=== PATIENT | female | born 1990 | race Caucasian/White ===

== ENCOUNTER 2019-08-06 19:24 | Inpatient (IN) | payer BC ==
[2019-08-06] VITALS (14 sets, daily range): BP systolic 102–137; BP diastolic 57–88; PULSE 83–107; TEMP 98.1–98.9
[~2019-08-06] VITALS: Ht 170.2 cm; Wt 89.1 kg
--- NOTE | 2019-08-06 19:00 | NUR ---
G2L1. 40-1. Ambulatory to [facility] with significant other. Clean gown on. EFM and TOCO explained and applied. Pt states she thinks she has been having contractions every 3-4 minutes apart during the drive to hospital. Pt called earlier and was told to come get evaluated here. Pt states she lost her mucous plug this morning and since then she has had some leaking but states she is unsure if it was her water that broke. SVE /-2. Moist exam noted, amniotest positive but bloody show was also noted on exam glove, bag of water noted on exam. Pt reports good movement. VSS. 1907: notified on pts status. See physican notification. 1914: Plan of care explained to pt and significant other. IV started and labs obtained via IV site. LR bolus and Mitzy infusing without difficulties. Call light within reach. 1929: Report given to Estephania TOVAR.
[~2019-08-06 19:24] MED LIST: BCP TD; FLEXERIL10 MG PO; LORTAB 5/500 501 TAB PO; MOTRIN 600600 MG/TAB PO; PERCOCET 325 MG1 TA2 PO; PRENATAL1 TA1; PROZAC 20MG20 MG PO; VISTARIL 2525 MG/CAP PO
[2019-08-06 21:12] LABS: HEMOGLOBIN 10.7 g/dl (12.5-16.0); MEAN CELL VOLUME 83 fl (80.0-100.0); MEAN CORPUSCULAR HEMOGLOBIN 27 pg (27.0-31.0); MEAN CORPUSCULAR HGB CONC 32 g/dl (33.0-37.0); MEAN PLATELET VOLUME 11.2 fl (7.4-10.4); PLATELET COUNT 177 K/mm3 (130-400); RED BLOOD COUNT 3.99 M/mm3 (4.10-5.30); REDCELL DISTRIBUTION WIDTH-CV 13.3 % (11.5-14.5)
[2019-08-06 22:35] LABS: EOSINOPHIL 3 % (0-4); LYMPHOCYTE 11 % (20.0-51.0); MICROCYTOSIS 1+; MYELOCYTE 1 % (0-0); NEUTROPHILS 81 % (42.0-75.2); PLATELET ESTIMATE NORMAL (NORMAL)
--- NOTE | 2019-08-06 23:00 | NUR ---
5174- DR. KRAUSE REMAINS ON UNIT AT THIS TIME, MANAGING PATIENT CARE AT NURSES STATION. NO NEW ORDERS RECEIVED.
[2019-08-07] VITALS (18 sets, daily range): BP systolic 11–134; BP diastolic 48–76; PULSE 67–118; TEMP 97.8–99
--- NOTE | 2019-08-07 00:06 | NUR ---
2345- DR. KRAUSE AT BEDSIDE AT THIS TIME. PATIENT COMPLETE AND +2 STATION FEELING MILD PRESSURE WITH CONTRACTIONS. 2347- PATIENT PLACED IN LITHOTOMY AND INSTRUCTED ON PUSHING. 0006- SPONTANEOUS DELVIERY OF VIABLE MALE AT THIS TIME. KLAUDIA RN AT BEDSIDE NURSERY NURSE. PLACED ON PATIENT'S CHEST, DRIED AND STIMULATED, PINK AND CRYING. 0009- SPONTANEOUS DELIVERY OF INTACT PLACENTA, PITOCIN INFUSING AT 333CC/HR AT THIS TIME. 0010- SMALL PERIURETHRAL LACERATION NOTED PER NELIDA, 1 STITCH PLACED. EBL 300CC. APGARS 8,9,9
[2019-08-07] MEDS ORDERED: IBU800 M1 PO (09:02)
--- NOTE | 2019-08-07 09:58 | NUR ---
Initial visit; Patient thanked Jig Fitter for offering congratulations and God's blessings to their family for the of their son. Jig Fitter thanked family for choosing [facility].
[2019-08-08 08:00] VITALS: BP 110/59; PULSE 82; TEMP 98.3
--- NOTE | 2019-08-08 10:15 | NUR ---
congratulate the family on their new baby.
--- NOTE | 2019-08-08 11:00 | NUR ---
1100-Reviewed vaginal delivery discharge instructions with patient. Reviewed follow up apt. Denies questions. 1120-Ambulatory off unit with spouse, family and .
== END 2019-08-08 11:20 | disposition home or self-care (01) | DRG 807 ==
LOC: LDRO 19:24 → LDR 19:26 → OB 08-07 02:30
PROVIDERS: Obstetrics & Gynecology; ADMIT Obstetrics & Gynecology
PROC: 10E0XZZ Delivery of Products of Conception, External Approach (ICD-10-PCS; principal; 2019-08-07)
PROC: 0UQMXZZ Repair Vulva, External Approach (ICD-10-PCS; 2019-08-07)
DX: O42.92 Full-term premature rupture of membranes, unspecified as to length of time between rupture and onset of labor (principal); Z37.0 Single live birth; O99.824 Streptococcus B carrier state complicating childbirth; O62.0 Primary inadequate contractions; O70.0 First degree perineal laceration during delivery; Z3A.40 40 weeks gestation of pregnancy
CPT/HCPCS: J2540; J2590; J7120